=== PATIENT | male | born 1995 | race Caucasian/White ===

== ENCOUNTER 2023-03-17 19:46 | Emergency (ER) | payer OTHER ==
[2023-03-17 19:55] VITALS: BP 137/89; PULSE 86; RESP 20; BMI 36.0
[2023-03-17 20:04] VITALS: TEMP 98.3
[2023-03-17] MEDS ORDERED: ACETAMINOPHEN 325 MG TABLET (FP) PO ONE (20:45)
[2023-03-17] MEDS ORDERED: ACETAMINOPHEN 325 MG TABLET (FP) ONE (20:53)
[2023-03-17 21:09] LABS: BASO % 0.4 % (0-2.0); EOS % 0.9 % (0-4.5); HEMATOCRIT 44.9 % (35.4-49); LYMPH % 47.1 % (8-40); MCH 28.4 pg (25.7-33.7); MCHC 33.5 g/dl (32.0-35.9); MEAN CELL VOLUME 84.8 fl (80-96); MEAN PLT VOLUME 7.8 fl (7.5-11.1); MONO % 10.5 % (3.8-10.2); NEUT % 41.1 % (42.8-82.8); PLATELET COUNT 213 10^3/uL (134-434); RDW 13.7 % (11.9-15.9); WHITE BLOOD COUNT 5.9 K/mm3 (4.0-10.0)
[2023-03-17 21:30] LABS: POTASSIUM 3.6 mmol/L (3.5-5.1)
[2023-03-17 21:32] LABS: ALBUMIN 4.2 g/dl (3.4-5.0); BLOOD UREA NITROGEN 12.5 mg/dL (7-18)
[2023-03-17 21:35] LABS: CREATININE 1.1 mg/dL (0.55-1.3)
[2023-03-17 21:37] LABS: BILIRUBIN,TOTAL 0.4 mg/dL (0.2-1); TOT PROT 7.6 g/dl (6.4-8.2)
== END 2023-03-17 23:13 | disposition home or self-care (01) ==
LOC: JER 19:46
DX: R10.31 Right lower quadrant pain (principal); K59.00 Constipation, unspecified
CPT/HCPCS: 36415; 74018-TC-FY; 74177-TC; 80053; 85025; 99285-25; Q9967